=== PATIENT | male | born 1990 | race Caucasian/White ===

== ENCOUNTER 2021-07-12 16:35 | Outpatient (CLI) | payer OTHER | END 2021-07-12 16:51 | disposition home or self-care (01) | LOC: RAD 16:35 | DX: M79.674 Pain in right toe(s) (principal) ==

== ENCOUNTER 2021-07-27 08:00 | Outpatient (CLI) | payer OTHER | END 2021-07-27 08:30 | disposition home or self-care (01) | LOC: PPH VACUNA 08:00 | PROVIDERS: ATTEND Emergency Medicine Pediatric Emergency Medicine | DX: Z23 Encounter for immunization (principal) ==

== ENCOUNTER 2022-02-16 08:06 | Outpatient (CLI) | payer OTHER | END 2022-02-16 08:13 | disposition home or self-care (01) | LOC: NUCLEAR 08:06 | PROVIDERS: ATTEND Internal Medicine Sports Medicine | DX: I42.9 Cardiomyopathy, unspecified (principal) ==